=== PATIENT | male | born 1960 | race Caucasian/White ===

== ENCOUNTER 2016-09-03 03:03 | Emergency (ER) | payer OTHER ==
[2016-09-03] MEDS ORDERED: NS 1,000 ML IV ONE (03:55)
[2016-09-03] MEDS ORDERED: ONDANSETRON 4 MG/2 ML VIAL IVP ONE (03:55)
--- NOTE | 2016-09-03 03:55 | EDPHY ---
H & P Stated Complaint: abd pain Time Seen by Provider: 09/03/16 03:44 HPI/ROS: Chief complaint: Abdominal pain HPI: Patient woke at 12:30 p.m. this morning started with upper abdominal pain which then migrated to his lower abdomen. At worst is an 8 to 9/10. Some nausea, no vomiting or diarrhea. Has a history of stomach issues but has never had pain this bad before. No chest pain or shortness of breath. States it started out feeling his usual indigestion of his if he had eaten too much close to bedtime with pain in the lower abdomen is unusual for him. No fevers or chills. Is described as a dull aching pain. Patient states that his underwear tight across his abdomen is hurting as well. ROS: 10 point Review of Systems is negative except as noted in the HPI. Past medical history: Hernia repair, hip surgeries, ankle surgeries Medications: Advil p.r.n. Allergies: No known drug allergies Social history, no smoking, occasional alcohol, occasional marijuana Physical exam: Gen: Awake, Alert, No Distress HEENT: Nose: no rhinorrhea Eyes: PERRLA, EOMI Mouth: Moist mucosa Neck: Supple, no JVD Chest: nontender, lungs clear to auscultation Heart: S1, S2 normal, no murmur Abd: Soft, moderate viral lower lower abdominal tenderness without guarding Back: no CVA tenderness, no midline tenderness Ext: no edema, non-tender Skin: no rash Neuro: CN II-XII intact, Sensation grossly intact, Strength 5/5 in bilateral upper and lower extremities - Personal History Tetanus Vaccine Date: <10 YRS - Medical/Surgical History Hx Asthma: No Hx Chronic Respiratory Disease: No Hx Diabetes: No Hx Cardiac Disease: No Hx Renal Disease: No Hx Cirrhosis: No Hx Alcoholism: No Hx HIV/AIDS: No Hx Splenectomy or Spleen Trauma: No Other PMH: denies - Social History Smoking Status: Never smoked Constitutional: Initial Vital Signs Temperature (C) 36.2 C 09/03/16 03:06 Heart Rate 58 L 09/03/16 03:06 Respiratory Rate 20 09/03/16 03:06 Blood Pressure 108/77 09/03/16 03:06 O2 Sat (%) 98 09/03/16 03:06 O2 Delivery Mode Room Air O2 (L/minute) 2 Allergies/Adverse Reactions: No Allergies [NKDA] Allergy (Verified 09/03/16 03:06) SEASONAL Allergy (Intermediate, Uncoded 03/24/14 14:22) EYES ITCHY Home Medications: Medication Instructions Recorded NK [No Known Home Meds] 03/24/14 Medical Decision Making - Diagnostics EKG Interpretation: EC sinus rhythm with a rate of 54, borderline axis deviation, no acute ST or T-wave changes, normal intervals: Impression normal ECG. Imaging: CT abdomen pelvis interpreted by Dr. Pierce. There are fluid filled distended stomach small bowels and proximal large bowel with fecal material in the descending and rectosigmoid colon. There is a normal appendix. There is no free air. No other acute findings. Findings are consistent with acute gastro enteritis colitis Interpreted by Dr. Pierce. ED Course/Re-evaluation: Patient is improved after fluids and medication. CT scan shows findings consistent with gastroenteritis with fecal material noted in the descending rectosigmoid colon. The pressure build behind this is probably is causing his discomfort. There is no evidence of obstruction at this time. Normal appendix. No other signs of focal infection on CT. Will discharge with symptomatic treatment instructions follow up with primary care physician on Monday if symptoms are not improving. - Data Points Laboratory Results: Laboratory Results 09/03/16 03:40 09/03/16 03:40 09/03/16 09/03/16 03:40 03:40 WBC 12.54 10^3/uL H 10^3/uL (3.80-9.50) RBC 5.38 10^6/uL 10^6/uL (4.40-6.38) Hgb 17.3 g/dL g/dL (13.7-17.5) Hct 48.1 % % (40.0-51.0) MCV 89.4 fL fL (81.5-99.8) MCH 32.2 pg pg (27.9-34.1) MCHC 36.0 g/dL g/dL (32.4-36.7) RDW 11.7 % % (11.5-15.2) Plt Count 247 10^3/uL 10^3/uL (150-400) MPV 9.5 fL fL (8.7-11.7) Neut % (Auto) 84.4 % H % (39.3-74.2) Lymph % (Auto) 7.9 % L % (15.0-45.0) Pickett % (Auto) 6.3 % % (4.5-13.0) Eos % (Auto) 0.8 % % (0.6-7.6) Baso % (Auto) 0.2 % L % (0.3-1.7) Nucleat RBC Rel Count 0.0 % % (0.0-0.2) Absolute Neuts (auto) 10.58 10^3/uL H 10^3/uL (1.70-6.50) Absolute Lymphs (auto) 0.99 10^3/uL L 10^3/uL (1.00-3.00) Absolute Monos (auto) 0.79 10^3/uL 10^3/uL (0.30-0.80) Absolute Eos (auto) 0.10 10^3/uL 10^3/uL (0.03-0.40) Absolute Basos (auto) 0.03 10^3/uL 10^3/uL (0.02-0.10) Absolute Nucleated RBC 0.00 10^3/uL 10^3/uL (0-0.01) Immature Gran % 0.4 % % (0.0-1.1) Immature Gran # 0.05 10^3/uL 10^3/uL (0.00-0.10) Sodium 141 mEq/L mEq/L (134-144) Potassium 4.0 mEq/L mEq/L (3.5-5.2) Chloride 102 mEq/L mEq/L (97-110) Carbon Dioxide 26 mEq/l mEq/l (22-31) Anion Gap 13 mEq/L mEq/L (8-16) BUN 18 mg/dL mg/dL (7-23) Creatinine 0.9 mg/dL mg/dL (0.7-1.3) Estimated GFR > 60 Glucose 88 mg/dL mg/dL (70-100) Calcium 10.5 mg/dL H mg/dL (8.5-10.4) Total Bilirubin 1.1 mg/dL mg/dL (0.1-1.4) Conjugated Bilirubin 0.3 mg/dL mg/dL (0.0-0.5) Unconjugated Bilirubin 0.8 mg/dL mg/dL (0.0-1.1) AST 41 IU/L IU/L (17-59) ALT 58 IU/L IU/L (21-72) Alkaline Phosphatase 62 IU/L IU/L (38-126) Troponin I < 0.012 ng/mL ng/mL (0-0.034) Total Protein 8.1 g/dL g/dL (6.3-8.2) Albumin 4.8 g/dL g/dL (3.5-5.0) Lipase 164.0 IU/L IU/L (23-300) Medications Given: Discontinued Medications Sodium Chloride (Ns) 1,000 mls @ 0 mls/hr IV ONCE ONE PRN Reason: Wide Open Stop: 09/03/16 03:56 Last Admin: 09/03/16 04:10 Dose: 1,000 mls Morphine Sulfate (Morphine) 4 mg IVP ONCE ONE Stop: 09/03/16 03:56 Last Admin: 09/03/16 04:10 Dose: 4 mg Ondansetron HCl (Zofran) 4 mg IVP EDNOW ONE Stop: 09/03/16 03:56 Last Admin: 09/03/16 04:10 Dose: 4 mg Departure - Departure Disposition: Home, Routine, Self-Care Clinical Impression: Acute gastroenteritis Condition: Good Instructions: Gastroenteritis (ED) Additional Instructions: Follow up with primary care physician on Monday. Return to the emergency depart for increasing pain, nausea, vomiting, uncontrolled diarrhea, or any other concerns. You may take ondansetron for nausea and vomiting. Referrals: Ryan Villa MD [Primary Care Provider] - As per Instructions
[2016-09-03] MEDS ORDERED: IOPAMIDOL (ISOVUE-300) 100 ML BTL IV ONE (03:57)
[2016-09-03 04:03] LABS: % IMMATURE GRANULYOCYTES 0.4 % (0.0-1.1); ABSOLUTE IMMATURE GRANULOCYTES 0.05 10^3/uL (0.00-0.10); ADD DIFF? NO; ADD MORPH? NO; ADD SCAN? NO; ATYPICAL LYMPHOCYTE FLAG 0 (0-99); FRAGMENT RBC FLAG 0 (0-99); HEMATOCRIT 48.1 % (40.0-51.0); HEMOGLOBIN 17.3 g/dL (13.7-17.5); LEFT SHIFT FLG 10 (0-99); LIPEMIA HEMOLYSIS FLAG 90 (0-99); MEAN CELL HEMOGLOBIN 32.2 pg (27.9-34.1); MEAN CELL VOLUME 89.4 fL (81.5-99.8); MEAN PLATELET VOLUME 9.5 fL (8.7-11.7); PLATELET CLUMPS FLAG 0 (0-99); PLATELET COUNT 247 10^3/uL (150-400); RED BLOOD CELL COUNT 5.38 10^6/uL (4.40-6.38); RED CELL DISTRIBUTION WIDTH 11.7 % (11.5-15.2)
[2016-09-03 04:12] LABS: ALANINE AMINOTRANSFERASE 58 IU/L (21-72); ALBUMIN 4.8 g/dL (3.5-5.0); ALKALINE PHOSPHATASE 62 IU/L (38-126); ANION GAP 13 mEq/L (8-16); ASPARTATE AMINOTRANSFERASE 41 IU/L (17-59); BILIRUBIN,TOTAL 1.1 mg/dL (0.1-1.4); BILIRUBIN-CONJUGATED 0.3 mg/dL (0.0-0.5); BILIRUBIN-UNCONJUGATED 0.8 mg/dL (0.0-1.1); CALCIUM 10.5 mg/dL (8.5-10.4); CARBON DIOXIDE 26 mEq/l (22-31); CHLORIDE 102 mEq/L (97-110); CREATININE 0.9 mg/dL (0.7-1.3); GLOMERULAR FILTRATION RATE > 60; GLUCOSE 88 mg/dL (70-100); SODIUM 141 mEq/L (134-144); TOTAL PROTEIN 8.1 g/dL (6.3-8.2)
[2016-09-03 04:23] LABS: TROPONIN I < 0.012 ng/mL (0-0.034)
[2016-09-03 04:40] VITALS: RESP 16
--- NOTE | 2016-09-03 04:45 | CPEKG ---
Heart Rate: 54 RR Interval: 1111 P-R Interval: 176 QRSD Interval: 104 QT Interval: 452 QTC Interval: 429 P Gary: 33 QRS Gary: -19 T Wave Gary: 22 EKG Severity - OTHERWISE NORMAL ECG - EKG Impression: SINUS RHYTHM EKG Impression: BORDERLINE LEFT AXIS DEVIATION Electronically Signed By: Carlos Gómez 03-Sep-2016 07:06:14
[2016-09-03] MEDS ORDERED: ONDANSETRON 4MG PREPACK#2 BTL TAKEHOME ONE (05:02)
[2016-09-03 05:20] VITALS: BP 118/80; PULSE 72; TEMP 97.9; O2SAT 95
== END 2016-09-03 05:18 | disposition home or self-care (01) ==
DX: K52.9 Noninfective gastroenteritis and colitis, unspecified (principal)
CPT/HCPCS: 96374; J2405; Q9967

== ENCOUNTER 2017-04-07 14:33 | Emergency (ER) | payer OTHER ==
[2017-04-07 14:39] VITALS: BP 145/97; PULSE 54; RESP 16; TEMP 98.1; O2SAT 98
[2017-04-07] MEDS ORDERED: predniSONE 20 MG TAB ONE (15:29)
[2017-04-07] MEDS ORDERED: FAMOTIDINE 20 MG TAB ONE (15:29)
[2017-04-07] MEDS ORDERED: predniSONE 20 MG TAB PO ONE (15:35)
[2017-04-07] MEDS ORDERED: FAMOTIDINE 20 MG TAB PO ONE (15:36)
--- NOTE | 2017-04-07 15:48 | EDPHY ---
H & P Time Seen by Provider: 04/07/17 15:19 HPI/ROS: CHIEF COMPLAINT: Bee sting upper lip HISTORY OF PRESENT ILLNESS: 56-year-old male presents to the emergency department with a bee sting to the upper lip. The patient has never had reactions in the past. The incident happened about 3 hours ago. He believes that he removed the stinger entirely. He denies dysphagia. Denies difficulty breathing. He has a pruritic rash that was associated with poison clifford contact few days ago. Denies any other symptoms. He has never had a reaction like this in the past. REVIEW OF SYSTEMS: Constitutional: No fever, no chills. Eyes: No double or blurry vision. ENT: No sore throat. Respiratory: No cough, no shortness of breath. Cardiac: No chest pain. Gastrointestinal: No abdominal pain, vomiting or diarrhea. Genitourinary: No dysuria. Musculoskeletal: No neck or back pain. Skin: No rashes. Neurological: No headache. Past Medical/Surgical History: Negative Social History: and lives in [place] Smoking Status: Never smoked Physical Exam: General Appearance: Alert, no distress. Eyes: Pupils equal and round. Extraocular motions are all intact. ENT: Mouth: Mucous membranes moist. Upper lip is very swollen. No evidence of retained stinger. No uvular swelling. No posterior pharyngeal injection noted. No muffled voice. Respiratory: No wheezing, rhonchi, or rales, lungs are clear to auscultation. Cardiovascular: Regular rate and rhythm. Gastrointestinal: Abdomen is soft and nontender, no masses, no rebound or guarding, bowel sounds normal. Neurological: Alert and oriented x 3, cranial nerves II through XII grossly intact Skin: Warm and dry, no rashes. Musculoskeletal: Nontender to palpate along the cervical, thoracic or lumbar spine. Neck is supple. Extremities: Full range of motion and no peripheral edema. Psychiatric: Patient is oriented X 3, there is no agitation. Constitutional: Initial Vital Signs Temperature (C) 36.7 C 04/07/17 14:36 Heart Rate 54 L 04/07/17 14:36 Respiratory Rate 16 04/07/17 14:36 Blood Pressure 145/97 H 04/07/17 14:36 O2 Sat (%) 98 04/07/17 14:36 O2 Delivery Mode Room Air Allergies/Adverse Reactions: No Allergies [NKDA] Allergy (Verified 04/07/17 14:40) SEASONAL Allergy (Intermediate, Uncoded 04/07/17 14:40) EYES ITCHY Home Medications: Medication Instructions Recorded predniSONE 60 mg PO DAILY 2 Days tab 04/07/17 Medical Decision Making ED Course/Re-evaluation: 56-year-old male presents to the emergency department with swelling to the upper lip. I do not think the patient is having anaphylactic reaction. No airway involvement. He has swelling isolated to the upper lip where he was stung. He was given 20 mg of Pepcid and 60 mg of prednisone p.o.. He will take the Benadryl when he gets home as he knows that this medication will make him very drowsy. I do not think epinephrine is indicated. The patient will be discharged home with follow-up with primary care provider. He was instructed to return if he developed difficulty breathing or swallowing or any other concerns. Differential Diagnosis: Including but not limited to acute allergic reaction, retained foreign body, anaphylaxis, cellulitis - Data Points Medications Given: Discontinued Medications Famotidine (Pepcid) 20 mg PO EDNOW ONE Stop: 04/07/17 15:37 Last Admin: 04/07/17 15:38 Dose: 20 mg Prednisone (Prednisone) 60 mg PO EDNOW ONE Stop: 04/07/17 15:36 Last Admin: 04/07/17 15:38 Dose: 60 mg Departure - Departure Disposition: Home, Routine, Self-Care Clinical Impression: Bee sting reaction Qualifiers: Encounter type: initial encounter Injury intent: accidental or unintentional Qualified Code(s): T63.441A - Toxic effect of venom of bees, accidental ( unintentional), initial encounter Condition: Good Instructions: Insect Bite or Sting (ED) Additional Instructions: You may continue Benadryl 25-50 mg every 6 hours as needed for swelling and or itching. Caution this medication will make you very drowsy. Pepcid 20 mg twice daily for itching and upper lip swelling as needed. Prednisone 60 mg for 2 additional days. Your given a dose in the emergency department. You do not need to fill this prescription until tomorrow. Cool compresses to help relieve swelling. Try not to itch or touch her upper lip as this may cause further irritation and swelling. Return to the emergency department if you develop difficulty breathing, difficulty swallowing or if you feel worse in any way. Referrals: Haimes,Ryan D, MD [Primary Care Provider] - As per Instructions Prescriptions: predniSONE 60 mg PO DAILY 2 Days tab
== END 2017-04-07 16:00 | disposition home or self-care (01) ==
DX: T63.441A Toxic effect of venom of bees, accidental (unintentional), initial encounter (principal)

== ENCOUNTER → 2018-05-11 | Outpatient (CLI) | payer OTHER ==
[~2018-05-11] MED LIST: BUPIVACAINE 0.25% 30 ML SDV ONE; DEPO METHYLPREDNISOLONE 40 MG/ML SDV ONE; LIDOCAINE 1% 300 MG/30 ML SDV ONE
== END ==
LOC: FIMAGING 09:39
PROVIDERS: ATTEND Orthopaedic Surgery
DX: M25.552 Pain in left hip (principal)
CPT/HCPCS: J1030

== ENCOUNTER → 2018-06-21 | Outpatient (CLI) | payer OTHER ==
[~2018-06-21] MED LIST changes: +BUPIVACAINE/DEXTROSE 7.5MG/ML 2 ML SPINAL AMP SP ONE
== END ==
LOC: FIMAGING 14:08
PROVIDERS: ATTEND Orthopaedic Surgery
PROC: 3E023GC Introduction of Other Therapeutic Substance into Muscle, Percutaneous Approach (ICD-10-PCS; principal; 2018-06-21)
DX: M25.552 Pain in left hip (principal)
CPT/HCPCS: J1030

== ENCOUNTER → 2018-09-12 | Outpatient (CLI) | payer OTHER | LOC: BMCIMAGING 11:07 | PROVIDERS: ATTEND Family Medicine | DX: M79.644 Pain in right finger(s) (principal); M79.89 Other specified soft tissue disorders ==

== ENCOUNTER → 2018-10-22 | Outpatient (CLI) | payer OTHER | LOC: BMCIMAGING 15:09 | PROVIDERS: ATTEND Internal Medicine | DX: I65.22 Occlusion and stenosis of left carotid artery (principal) ==